=== PATIENT | male | born 1955 | race Caucasian/White ===

== ENCOUNTER 2024-05-25 16:36 | Inpatient (IN) | payer MEDICARE, MEDICAID ==
[~2024-05-25] VITALS: Ht 162.6 cm; Wt 122.9 kg
[2024-05-25 17:21] LABS: BASOPHILS % (AUTO) 0.7 % (0-1); EOSINOPHILS # (AUTO) 0.1 X10'3 (0-0.9); EOSINOPHILS % (AUTO) 3.2 % (0-6); HEMATOCRIT 40.8 % (42.0-52.0); HEMOGLOBIN 13.5 g/dl (14.0-17.9); LYMPHOCYTES # (AUTO) 1.2 X10'3 (1.1-4.8); LYMPHOCYTES % (AUTO) 29.2 % (21-51); MEAN CORPUSCULAR HEMOGLOBIN 29.6 PG (27.0-31.0); MEAN CORPUSCULAR HGB CONC 33.1 g/dL (33.0-36.5); MEAN CORPUSCULAR VOLUME 89.3 FL (78-98); MONOCYTES # (AUTO) 0.4 X10'3 (0-0.9); MONOCYTES % (AUTO) 9.3 % (2-12); NEUTROPHILS # (AUTO) 2.3 X10'3 (1.8-7.7); NEUTROPHILS % (AUTO) 57.6 % (42-75); PLATELET COUNT 89 X10'3 (140-440); RED BLOOD COUNT 4.56 X10'6 (4.70-6.10); RED CELL DISTRIBUTION WIDTH 15.5 % (11.5-14.5)
[2024-05-25 17:33] LABS: ALANINE AMINOTRANSFERASE 10 U/L (12-78); ALBUMIN/GLOBULIN RATIO 0.6 (1.1-1.5); ALKALINE PHOSPHATASE 90 IU/L (46-116); ANION GAP 7 (8-16); ASPARTATE AMINO TRANSFERASE 27 U/L (10-37); BILIRUBIN,TOTAL 0.6 MG/DL (0.1-1.0); BLOOD UREA NITROGEN 57 MG/DL (7-18); BUN/CREATININE RATIO 41.9 (10.0-20.0); CALCIUM 8.3 MG/DL (8.5-10.1); CHLORIDE 104 MMOL/L (99-107); CREATININE 1.36 MG/DL (0.60-1.10); GLUCOSE 139 MG/DL (70-104); POTASSIUM 4.7 MMOL/L (3.5-5.1); SODIUM 139 MMOL/L (135-145); TOTAL CARBON DIOXIDE 27.7 MMOL/L (24-32); TOTAL PROTEIN 7.8 G/DL (6.4-8.2); eCRCL 44 ML/MIN; eGFR 52 ML/MIN
[2024-05-25 17:40] LABS: PRO BRAIN NATRIURETIC PEPTIDE 2613 PG/ML (0-125)
[2024-05-25 17:46] LABS: INR 1.2 INR; PROTHROMBIN TIME 12.1 SECONDS (9.0-12.0)
[2024-05-25] MEDS: heparin 25,000 UNIT/250ml bag 250 ML IV PRN (17:47)
[2024-05-25] MEDS: MESSAGE TO NURSING IV ONE (17:47)
[2024-05-25] MEDS: HEPARIN DRIP INITAL BOLUS --- DO NOT GIVE/ORDER MC ONE (17:48)
[2024-05-25] MEDS ORDERED: magnesium hydroxide 30ml (MOM) UD suspension PO PRN (17:50)
[2024-05-25] MEDS ORDERED: mag hydrox/Alum hydrox/simeth 30ml oral suspension PO PRN (17:50)
[2024-05-25] MEDS ORDERED: acetaminophen 325mg tablet PO PRN (17:50)
[2024-05-25] MEDS ORDERED: magnesium sulf-water 2g/50mL 50 ML IV PRN (17:50)
[2024-05-25] MEDS ORDERED: potassium Cl 40MEQ/1/2NS 520ml 520 ML IV PRN (17:50)
[2024-05-25] MEDS ORDERED: ondansetron/PF 4mg/2ml inj IV PRN (17:50)
[2024-05-25] MEDS ORDERED: magnesium sulf-water 4G/100mL 100 ML IV PRN (17:50)
[2024-05-25] MEDS ORDERED: magnesium Cl slow-release 64mg tablet PO PRN (17:50)
[2024-05-25] MEDS ORDERED: potassium Cl 20 mEq SR tablet PO PRN ×2 (17:50)
[2024-05-25 18:35] LABS: BILIRUBIN,URINE NEGATIVE (Neg); CLARITY,URINE CLEAR (Clear); COLOR,URINE YELLOW (Yellow); GLUCOSE, URINE NEGATIVE (Neg); KETONES,URINE NEGATIVE (Neg); LEUKOCYTE ESTERASE ,URINE MODERATE (Neg); NITRITES, URINE NEGATIVE (Neg); OCCULT BLOOD,URINE LARGE (Neg); PROTEIN,URINE NEGATIVE (Neg); UROBILINOGEN,URINE 0.2 E.U/dL (0.2-1.0)
[2024-05-25 18:40] LABS: UA COLLECTION TYPE FOLEY CATH
[2024-05-25 18:43] LABS: BACTERIA,URINE 3+ /HPF (Neg); RBC,URINE TNTC /HPF (0-2); WBC,URINE TNTC /HPF (0-4)
[2024-05-25 18:44] LABS: SQUAMOUS EPITHELIAL CELL,UR NONE SEEN /LPF (FEW)
[2024-05-25 18:46] LABS: ABG BASE EXCESS -2.9 mmol/L (-2.0-3.0); ABG HCO3 22.9 mmol/L (21.0-28.0); ABG OXYGEN SATURATION 97.8 % (94.0-98.0); ABG PCO2 (T) 41.3 mmHg (35.0-48.0); ABG PH (T) 7.356 (7.350-7.450); ABG PO2 (T) 107.8 mmHg (83.0-108.0); ALLEN'S TEST Modified; FCOHb 0.7 % (0.5-1.5); FHHb 2.2 % (0.0-5.0); FLOW 2 L/min; FMetHb 0.3 % (0.0-1.5); FO2Hb 96.8 % (94.0-98.0); MODE NASAL CANNULA; PATIENT TEMPERATURE 35.6; TOTAL HEMOGLOBIN 13.9 G/dl (13.5-17.5)
[2024-05-25 19:03] LABS: CHOL/HDL RATIO 3.1 (0.00-4.99); CHOLESTEROL 100 MG/DL (0-200); HDL CHOLESTEROL 32 MG/DL (35-60); LDL CHOLESTEROL 61 MG/DL (50-100); THYROID STIMULATING HORMONE 0.36 ulU/ml (0.34-4.50); TRIGLYCERIDES 35 MG/DL (20-135)
[2024-05-25 19:28] LABS: HEMOGLOBIN A1C 6.6 % (4.5-6.2)
[2024-05-25 19:28] LABS: URINE AMPHETAMINE SCREEN NEGATIVE (Neg); URINE BARBITUATE SCREEN NEGATIVE (Neg); URINE BENZODIAZEPINES SCREEN NEGATIVE (Neg); URINE CANNABINOID SCREEN NEGATIVE (Neg); URINE COCAINE SCREEN NEGATIVE (Neg); URINE METHADONE SCREEN NEGATIVE (Neg); URINE OPIATE SCREEN NEGATIVE (Neg); URINE PHENCYCLIDINE SCREEN NEGATIVE (Neg)
[2024-05-25] MEDS: CefTRIAXone/D5W-Rocephin 1gm 50 ML IV ONE (19:56)
[2024-05-25] MEDS: K and/or MAG REPLACEMENT MC SCH (20:00)
[2024-05-25] MEDS: ringers solution, lacted 1,000 ML IV SCH (20:42)
[2024-05-25] MEDS ORDERED: GABA-530 PO (20:47)
[2024-05-25] MEDS ORDERED: CALC-492 PO (20:47)
[2024-05-25] MEDS ORDERED: CELE-193 PO (20:47)
[2024-05-25] MEDS ORDERED: ASPI81TA52 PO (20:47)
[2024-05-25] MEDS ORDERED: FURO-149 PO (20:47)
[2024-05-25] MEDS ORDERED: LANTUS SUBCUT (20:47)
[2024-05-25] MEDS ORDERED: ESCI20TA39 PO (20:47)
[2024-05-25] MEDS ORDERED: CALC200T16 PO (20:47)
[2024-05-25] MEDS ORDERED: ATOR-429 PO (20:47)
[2024-05-25] MEDS ORDERED: POTA-192 PO (20:47)
[2024-05-25] MEDS ORDERED: LACT10PA5 PO (20:47)
[2024-05-26] VITALS (8 sets, daily range): BP systolic 105–156; BP diastolic 55–84; PULSE 61–90; RESP 12–20; TEMP 97.1–97.8; O2SAT 93–98
[2024-05-26] MEDS: MESSAGE TO NURSING IV ONE ×4 (01:21→22:10)
[2024-05-26 06:24] LABS: BASOPHILS % (AUTO) 0.4 % (0-1); EOSINOPHILS # (AUTO) 0.1 X10'3 (0-0.9); HEMATOCRIT 41.3 % (42.0-52.0); HEMOGLOBIN 13.6 g/dl (14.0-17.9); LYMPHOCYTES # (AUTO) 0.7 X10'3 (1.1-4.8); LYMPHOCYTES % (AUTO) 21.2 % (21-51); MEAN CORPUSCULAR HEMOGLOBIN 29.5 PG (27.0-31.0); MEAN CORPUSCULAR VOLUME 89.6 FL (78-98); MONOCYTES # (AUTO) 0.3 X10'3 (0-0.9); MONOCYTES % (AUTO) 7.5 % (2-12); NEUTROPHILS # (AUTO) 2.4 X10'3 (1.8-7.7); NEUTROPHILS % (AUTO) 68.9 % (42-75); PLATELET COUNT 91 X10'3 (140-440); RED BLOOD COUNT 4.61 X10'6 (4.70-6.10); RED CELL DISTRIBUTION WIDTH 15.5 % (11.5-14.5); WHITE BLOOD COUNT 3.5 X10'3 (4.5-11.0)
[2024-05-26 06:43] LABS: ALANINE AMINOTRANSFERASE 12 U/L (12-78); ALBUMIN/GLOBULIN RATIO 0.7 (1.1-1.5); ALKALINE PHOSPHATASE 90 IU/L (46-116); ANION GAP 5 (8-16); ASPARTATE AMINO TRANSFERASE 29 U/L (10-37); BILIRUBIN,TOTAL 0.6 MG/DL (0.1-1.0); BLOOD UREA NITROGEN 42 MG/DL (7-18); BUN/CREATININE RATIO 38.5 (10.0-20.0); CALCIUM 8.4 MG/DL (8.5-10.1); CHLORIDE 107 MMOL/L (99-107); CREATININE 1.09 MG/DL (0.60-1.10); GLUCOSE 123 MG/DL (70-104); POTASSIUM 4.7 MMOL/L (3.5-5.1); SODIUM 143 MMOL/L (135-145); TOTAL CARBON DIOXIDE 30.7 MMOL/L (24-32); TOTAL PROTEIN 7.6 G/DL (6.4-8.2); eCRCL 55 ML/MIN; eGFR 67 ML/MIN
[2024-05-26] MEDS: heparin 10,000 units/1 ML INJ IV PRN (07:05)
[2024-05-26] MEDS: morphine 2 MG/ML inj. syringe IV PRN (07:20)
[2024-05-26] MEDS: aspirin 81mg tab.chew PO SCH (09:15)
[2024-05-26] MEDS: atorvastatin 20mg tablet PO SCH (09:16)
[2024-05-26] MEDS: acetaminophen 325mg tablet PO PRN (09:22)
[2024-05-26] MEDS: CefTRIAXone/D5W-Rocephin 1gm 50 ML IV SCH (11:03)
[2024-05-26] MEDS: HYDROcodone/acetaminophen 5mg/325mg tablet PO PRN (14:09)
[2024-05-26] MEDS ORDERED: calcium carbonate 500mg tablet PO SCH (15:25)
[2024-05-26] MEDS: ketorolac trometh 15mg/ml vial 15 MG/ML ML IM ONE (20:45)
[2024-05-26] MEDS: Melatonin 3mg tablet PO SCH (20:49)
[2024-05-26] MEDS: gabapentin 100mg capsule PO SCH (20:49)
[2024-05-26] MEDS: insulin glargine (Lantus) pen - multi-dose SQ SCH (20:55)
[2024-05-27] VITALS (8 sets, daily range): BP systolic 113–181; BP diastolic 44–104; PULSE 61–86; RESP 13–21; TEMP 97.2–98.6; O2SAT 93–99
[2024-05-27 06:26] LABS: BASOPHILS % (AUTO) 0.5 % (0-1); EOSINOPHILS # (AUTO) 0.1 X10'3 (0-0.9); EOSINOPHILS % (AUTO) 2.6 % (0-6); HEMATOCRIT 38.5 % (42.0-52.0); HEMOGLOBIN 12.9 g/dl (14.0-17.9); LYMPHOCYTES # (AUTO) 1.3 X10'3 (1.1-4.8); LYMPHOCYTES % (AUTO) 31.4 % (21-51); MEAN CORPUSCULAR HEMOGLOBIN 30.1 PG (27.0-31.0); MEAN CORPUSCULAR HGB CONC 33.5 g/dL (33.0-36.5); MEAN CORPUSCULAR VOLUME 89.9 FL (78-98); MEAN PLATELET VOLUME 7.1 FL (7.4-10.4); MONOCYTES # (AUTO) 0.5 X10'3 (0-0.9); MONOCYTES % (AUTO) 11.5 % (2-12); NEUTROPHILS # (AUTO) 2.3 X10'3 (1.8-7.7); PLATELET COUNT 92 X10'3 (140-440); RED BLOOD COUNT 4.28 X10'6 (4.70-6.10); RED CELL DISTRIBUTION WIDTH 15.1 % (11.5-14.5); WHITE BLOOD COUNT 4.3 X10'3 (4.5-11.0)
[2024-05-27 06:43] LABS: ALANINE AMINOTRANSFERASE 11 U/L (12-78); ALBUMIN 2.9 G/DL (3.4-5.0); ALBUMIN/GLOBULIN RATIO 0.7 (1.1-1.5); ALKALINE PHOSPHATASE 80 IU/L (46-116); ANION GAP 4 (8-16); ASPARTATE AMINO TRANSFERASE 20 U/L (10-37); BILIRUBIN,TOTAL 0.5 MG/DL (0.1-1.0); BLOOD UREA NITROGEN 38 MG/DL (7-18); CALCIUM 8.4 MG/DL (8.5-10.1); CHLORIDE 106 MMOL/L (99-107); GLUCOSE 106 MG/DL (70-104); POTASSIUM 5.1 MMOL/L (3.5-5.1); SODIUM 141 MMOL/L (135-145); TOTAL CARBON DIOXIDE 31.2 MMOL/L (24-32); TOTAL PROTEIN 7.2 G/DL (6.4-8.2); eCRCL 60 ML/MIN; eGFR 75 ML/MIN
[2024-05-27] MEDS: MESSAGE TO NURSING IV ONE (07:00)
[2024-05-27] MEDS: calcium carbonate oral susp. 1,250 MG/5 ML (500mg/5ml elem. calcium) PO SCH (07:54)
[2024-05-27] MEDS: furosemide 40mg tablet PO SCH (07:55)
[2024-05-27] MEDS: atorvastatin 20mg tablet PO SCH (07:57)
[2024-05-27] MEDS: ESCITALOPRAM 10 mg tablet 10 MG TABLET PO SCH (07:58)
[2024-05-27] MEDS ORDERED: lactulose 20gm/30ml cup PO PRN (08:00)
[2024-05-27] MEDS ORDERED: aspirin 81mg, enteric-coated 1 TAB TABLET.DR PO SCH (08:00)
[2024-05-27] MEDS: potassium chloride 10mEq ER tablet PO SCH (08:00)
[2024-05-27] MEDS: morphine 2 MG/ML inj. syringe IV PRN (10:27)
[2024-05-27 21:29] LABS: INR 1.1 INR; PROTHROMBIN TIME 11.7 SECONDS (9.0-12.0)
[2024-05-27] MEDS: heparin, porcine 5000 units/ml vial SQ SCH (22:04)
[2024-05-28 02:00] VITALS: BP 127/67; PULSE 59; RESP 15; TEMP 97.3; O2SAT 94
[2024-05-28 07:00] VITALS: BP 116/53; PULSE 56; RESP 11; TEMP 97.2; O2SAT 98
[2024-05-28 07:25] LABS: BASOPHILS % (AUTO) 0.4 % (0-1); EOSINOPHILS # (AUTO) 0.1 X10'3 (0-0.9); EOSINOPHILS % (AUTO) 3.2 % (0-6); HEMATOCRIT 38.7 % (42.0-52.0); HEMOGLOBIN 12.7 g/dl (14.0-17.9); LYMPHOCYTES # (AUTO) 1.2 X10'3 (1.1-4.8); LYMPHOCYTES % (AUTO) 29.8 % (21-51); MEAN CORPUSCULAR HEMOGLOBIN 29.5 PG (27.0-31.0); MEAN CORPUSCULAR HGB CONC 32.8 g/dL (33.0-36.5); MEAN CORPUSCULAR VOLUME 89.8 FL (78-98); MEAN PLATELET VOLUME 7.1 FL (7.4-10.4); MONOCYTES # (AUTO) 0.5 X10'3 (0-0.9); MONOCYTES % (AUTO) 11.6 % (2-12); NEUTROPHILS # (AUTO) 2.2 X10'3 (1.8-7.7); PLATELET COUNT 102 X10'3 (140-440); RED BLOOD COUNT 4.31 X10'6 (4.70-6.10); RED CELL DISTRIBUTION WIDTH 15.7 % (11.5-14.5); WHITE BLOOD COUNT 4.1 X10'3 (4.5-11.0)
[2024-05-28 07:30] LABS: ALANINE AMINOTRANSFERASE 10 U/L (12-78); ALBUMIN 2.9 G/DL (3.4-5.0); ALBUMIN/GLOBULIN RATIO 0.6 (1.1-1.5); ALKALINE PHOSPHATASE 84 IU/L (46-116); ANION GAP 7 (8-16); ASPARTATE AMINO TRANSFERASE 22 U/L (10-37); BILIRUBIN,TOTAL 0.5 MG/DL (0.1-1.0); BLOOD UREA NITROGEN 32 MG/DL (7-18); BUN/CREATININE RATIO 34.8 (10.0-20.0); CALCIUM 8.4 MG/DL (8.5-10.1); CHLORIDE 106 MMOL/L (99-107); CREATININE 0.92 MG/DL (0.60-1.10); GLUCOSE 74 MG/DL (70-104); POTASSIUM 4.9 MMOL/L (3.5-5.1); SODIUM 141 MMOL/L (135-145); TOTAL CARBON DIOXIDE 28.4 MMOL/L (24-32); TOTAL PROTEIN 7.5 G/DL (6.4-8.2); eCRCL 65 ML/MIN; eGFR 82 ML/MIN
[2024-05-28 11:00] VITALS: BP 140/61; PULSE 63; RESP 19; TEMP 97.8; O2SAT 98
[2024-05-28] MEDS ORDERED: CLOP-32 PO (11:11)
[2024-05-28] MEDS: normal saline 1000ml 1,000 ML IV SCH (12:25)
[2024-05-28] MEDS ORDERED: iohexol 350MG/ML 100ml bottle IV ONE (13:03)
[2024-05-28 13:21] VITALS: RESP 19
== END 2024-05-28 15:20 | DRG 100 ==
LOC: ER 16:37 → ED HOLD 17:29 → EDBEDREQ 05-26 03:19 → PCU 3S 05-26 04:49
PROVIDERS: ADMIT Internal Medicine; ATTEND Internal Medicine
PROC: 4A10X4Z Monitoring of Central Nervous Electrical Activity, External Approach (ICD-10-PCS; principal; 2024-05-27)
PROC: B3281ZZ Computerized Tomography (CT Scan) of Bilateral Internal Carotid Arteries using Low Osmolar Contrast (ICD-10-PCS; 2024-05-28)
PROC: B32G1ZZ Computerized Tomography (CT Scan) of Bilateral Vertebral Arteries using Low Osmolar Contrast (ICD-10-PCS; 2024-05-28)
PROC: B3201ZZ Computerized Tomography (CT Scan) of Thoracic Aorta using Low Osmolar Contrast (ICD-10-PCS; 2024-05-28)
DX: R56.9 Unspecified convulsions (principal); G92.8 Other toxic encephalopathy; I21.4 Non-ST elevation (NSTEMI) myocardial infarction; N17.0 Acute kidney failure with tubular necrosis; N39.0 Urinary tract infection, site not specified; I25.10 Atherosclerotic heart disease of native coronary artery without angina pectoris; E11.9 Type 2 diabetes mellitus without complications; I45.10 Unspecified right bundle-branch block; Z95.5 Presence of coronary angioplasty implant and graft; Z89.512 Acquired absence of left leg below knee; T40.425A Adverse effect of tramadol, initial encounter; Y92.89 Other specified places as the place of occurrence of the external cause
CPT/HCPCS: 36415; 36600; 70551; 71275; 76700; 80053; 80061; 80305; 81001; 82140; 82803; 82948; 83036; 83880; 84443; 84484; 85018; 85025; 85610; 85730; 87081; 87088; 93005; 93306; 95816; 96365; 97110; 97162; 97530; 99291; A6212; A6449; G0378; J0696; J1644; J1815; J1885; J2270; J3490; J7040; J7120; Q9967